=== PATIENT | male | born 1950 | race Caucasian/White ===

== ENCOUNTER 2018-08-19 00:15 | Observation (INO) ==
[2018-08-19] MEDS ORDERED: Ondansetron 4 MG/2 ML VIAL IVP ONE (00:50)
[2018-08-19] MEDS ORDERED: 0.9 % Sodium Chloride 1,000 ML IVC ONE (00:50)
--- NOTE | 2018-08-19 00:52 | Emergency Department Note ---
Disposition Clinical Impression: Ataxia, Hyperglycemia CVA (cerebral vascular accident) Qualifiers: CVA mechanism: unspecified Qualified Code(s): I63.9 - Cerebral infarction, unspecified Disposition: Admitted As Inpatient Condition: Fair Time of Disposition: 02:05 Neuro HPI - General Chief Complaint: ED Neuro Symptoms/Deficit Stated Complaint: vertigo/stroke hx Time Seen by Provider: 08/19/18 00:33 Source: patient Mode of arrival: wheelchair Limitations: no limitations Nursing Notes Reviewed: Yes Vital Signs Reviewed: Yes - History of Present Illness HPI Narrative: 68-year-old male with history of hypertension, CVA presents for evaluation of dizziness. Patient states symptom onset was around 2200 this evening. States he does have prior history of dizziness and TIA in the past with most recent in November of this year. Patient states he was not feeling steady on his feet. Denies any falls. Denies any change in vision blurry vision or diplopia. Patient reports some nausea no vomiting. Patient denies any slurred speech or facial droop. No focal weakness or sensory deficit. Patient is on Lasix as well as full dose aspirin. Patient's dizziness is not necessarily described as room spinning but states that he does not feel steady on his feet. States it is worse when he is up slightly better when he is laying down however it does not completely resolve. - Related Data Home Medications: Home Medications Medication Instructions Recorded Confirmed Aspirin Enteric Coated [Aspirin EC] 325 mg PO DAILY 06/08/16 08/19/18 Clopidogrel [Plavix] 75 mg PO DAILY 06/08/16 08/19/18 Felodipine [Felodipine ER] 5 mg PO DAILY 06/08/16 08/19/18 Fexofenadine HCl 180 mg PO BID PRN 06/08/16 08/19/18 Lisinopril/Hydrochlorothiazide 1 tab PO DAILY 06/08/16 08/19/18 [Zestoretic 20-12.5 mg Tablet] Naproxen Sodium [Aleve] 220 mg PO BID PRN 06/08/16 08/19/18 Nitroglycerin [Nitrostat] 0.4 mg SL AD PRN 06/08/16 08/19/18 Rosuvastatin Calcium [Crestor] 10 mg PO DAILY 06/08/16 08/19/18 Tadalafil [Cialis] 20 mg PO DAILY PRN 06/08/16 08/19/18 metFORMIN [Glucophage] 2,000 mg PO DAILY 06/08/16 08/19/18 Potassium 99 mg PO DAILY 08/19/18 08/19/18 Allergies/Adverse Reactions: Allergies Allergy/AdvReac Type Severity Reaction Status Date / Time No Known Allergies Allergy Verified 08/19/18 03:39 All systems ED: reviewed and negative except as stated. Constitutional: Denies: fever Cardiovascular: Denies: chest pain Respiratory: Denies: cough, dyspnea Gastrointestinal: Reports: nausea. Denies: abdominal pain, vomiting Past Medical History - Past Medical History Source: patient Medical history: Reports: atrial fibrillation, CVA, diabetes, hypertension, other Surgical history: Reports: cholecystectomy, orthopedic, other Psychiatric history: Reports: no psych history - Social History Smoking Status: Never smoker Alcohol use: Reports: none Drug use: Reports: none Physical Exam - General Limitations: no limitations General appearance: alert, in no apparent distress - Head Head exam: atraumatic, normocephalic, normal inspection - Eye Eye exam: Present: normal appearance, PERRL, EOMI - ENT ENT exam: normal exam, mucous membranes moist - Neck Neck exam: Present: normal inspection, trachea midline - Chest Chest inspection: Present: normal inspection, symmetric chest wall rise - Respiratory Respiratory exam: Present: normal lung sounds bilaterally. Absent: respiratory distress - Cardiovascular Cardiovascular exam: Present: regular rate, normal rhythm. Absent: systolic murmur - Abdominal Exam Abdominal exam: Present: soft, Non-Tender - Extremities Exam Extremities exam: Present: normal inspection. Absent: pedal edema - Back Exam Back exam: Present: normal inspection - Neurological Exam Neurological exam: Present: alert, oriented X3, CN II-XII intact - Expanded Neurological Exam Patient oriented to: Present: person Speech: Present: fluid speech Cranial nerves: EOM function (II, III, IV, ): Normal, facial sensation (V): Normal, facial palsy (VII): Normal, spinal accessory function (XI): Normal, tongue deviation (XII): Normal Cerebellar function: finger to nose: Normal Cerebellar function: truncal ataxia Motor strength - LUE: 5/5 Motor strength - RUE: 5/5 Motor strength - LLE: 5/5 Motor strength - RLE: 5/5 Coma Scale Eye Opening: Spontaneous Coma Scale Motor Response: Obeys Commands Coma Scale Verbal Response: Oriented Coma Scale Total: 15 - Skin Skin exam: Present: warm, dry, intact, normal color Course Course Narrative: Patient seen and examined. Patient appears in no acute distress. Patient was not a stroke alert. Patient's complaining of ataxic symptoms started earlier this evening. Patient is on Plavix and aspirin. Has ataxia with standing with a positive Romberg. Patient does have prior TIA versus CVA. Patient will get basic labs, CT scan of the head. Disposition likely admission for further evaluation and maximal medical therapy. - Reevaluation(s) Reevaluation #1: Patient seen and examined. Patient's resting comfortably. No acute distress. Neuro exam is unchanged. Time: 01:55 Vital Signs Temperature 97.6 F 08/19/18 00:20 Pulse Rate 66 08/19/18 00:20 Respiratory Rate 20 08/19/18 00:20 Blood Pressure 145/87 08/19/18 00:20 O2 Sat by Pulse Oximetry 96 08/19/18 00:20 Temperature 97.6 F 08/19/18 00:20 Pulse Rate 70 08/19/18 01:34 Respiratory Rate 17 08/19/18 01:34 Blood Pressure 142/73 08/19/18 01:34 O2 Sat by Pulse Oximetry 97 08/19/18 01:34 Oxygen Delivery Oxygen Delivery Room Air Neuro Symptoms/Deficit - MDM Narrative Medical decision making narrative: Patient presents for concerns of vertigo with a history of CVA. Patient states his prior CVA included vertiginous symptoms and ataxia. Patient also had some left upper extremity weakness and slurred speech. Patient states that his symptoms tonight are not as progressed of they have been in the past. Patient's only complaining of vertiginous symptoms and ataxia. Primarily with standing and walking. States he has feels unsteady on his feet. Patient does have a positive Romberg and feels unsteady upon standing. No focal exam otherwise. Patient had a CT which shows no acute abnormalities. Patient also had basic labs. Patient was given aspirin. Patient's currently on aspirin and Plavix. Patient states that he has had an evaluation for a stroke back in November of this year. Patient states that the it have some abnormalities with the vessels leading into his neck. Patient is not a TPA candidate. Patient was not a stroke alert. Patient will be admitted to the hospital service for CVA/TIA for further evaluation with MRI and maximal medical therapy. - Lab Data Lab results reviewed: Yes I reviewed the patient's lab results. Result diagrams: 08/19/18 01:30 08/19/18 01:30 Lab Results 08/19/18 08/19/18 08/19/18 Range/Units 01:30 01:30 01:30 WBC 6.0 (4.3-11.1) K/mcL RBC 5.33 (4.19-5.50) M/mcL Hgb 15.3 (12.9-16.9) g/dL Hct 46.5 (37.5-50.1) % MCV 87.2 (83.0-100.0) fL MCH 28.7 (28.0-33.3) pg MCHC 32.9 (31.6-35.5) g/dL RDW 13.0 (11.5-14.5) % Plt Count 121 L (140-400) K/mcL MPV 10.6 (9.4-12.4) fL PT 11.8 (9.4-12.1) Seconds INR 1.0 APTT 32.1 (26.0-36.0) Seconds Sodium 141 (136-145) mEq/L Potassium 3.9 (3.5-5.1) mEq/L Chloride 106 (98-107) mEq/L Carbon Dioxide 27 (23-29) mEq/L BUN 21 (8-23) mg/dL Creatinine 1.21 (0.70-1.30) mg/dL Est GFR ( Amer) > 60 (> 60) Est GFR (Non-Af Amer) 59 L (> 60) BUN/Creatinine Ratio 17 (6-26) Glucose 133 H (70-105) mg/dL Calculated Osmolality 297 (280-300) Calcium 9.6 (8.6-10.3) mg/dL Troponin I < 0.03 (< 0.04) ng/mL - Radiology Data Radiology results reviewed: Yes I reviewed the patient's radiology results. Chest X-Ray 08/19/18 00:48 IMPRESSION: No acute process. Stable exam. D/ / Brayan Pringle MD / Brayan Pringle MD Interpreting Provider: Brayan Pringle MD Head CT 08/19/18 00:48 IMPRESSION: No acute intracranial abnormality. D/ / Brayan Pringle MD / Brayan Pringle MD Interpreting Provider: Brayan Pringle MD - EKG Data EKG attestation: Yes I reviewed and interpreted this EKG. EKG shows normal: sinus rhythm Rate: normal Rhythm: NSR Nogal/QRS: left axis deviation, LAHB/LAFB Q waves: v1 T wave inversions noted in: v1 Interpretation: no acute changes, nonspecific ST-T wave changes NIH Stroke Scale - Level of Consciousness LOC: Alert - LOC Questions LOC Questions: Answers both correctly - LOC Commands LOC Commands: Performs both correctly - Best Gaze Best Gaze: Normal - Visual Visual: No visual loss - Facial Palsy Facial Palsy: Normal - Motor Arms Motor Arm-Left: No drift for 10 seconds Motor Arm-Right: No drift for 10 seconds - Motor Legs Motor Leg-Left: No drift for 5 seconds Motor Leg-Right: No drift for 5 seconds - Limb Ataxia Limb Ataxia: Normal, No Ataxia - Sensory Sensory: Normal - Best Language Best Language: No aphasia - Dysarthria Dysarthria: Normal - Extinction and Inattention Extinction and Inattention: Normal - NIHSS Total Score NIHSS Total Score: 0 TPA Checklist - LKW: 3-4.5 hrs Add. Warnings/Precautions Patient/family understanding: The patient/family members have been counseled and understood the risk, benefit, and alternatives of treatment. S.B.A.RJudah - S.B.AElo Situation: Demographics Background: Presenting Complaint Assessment: Vital Signs, Course and respsone to treatment, Patient/Family Ex pectation Recommendation: Barrier(s) to disposition, Recommendation based on pending studies, treatments, or consults S.B.AElo Report Given to: Dr. Murphy Diaz Repor Time: 02:06 Attestation Statement - Attestation Attestation: I examined this patient and my medical decision-making was reviewed with the Resident Physician. I agree with the documented findings, disposition and treatment plan as described except to the extent set forth below. Patient has vertigo. History of stroke. Now with ataxia. Will admit for MRI to rule out posterior infarct and neurology consultation. Patient also underwent noncontrast head CT which showed no evidence of intracranial mass or bleeding.
[2018-08-19 01:41] LABS: Hematocrit 46.5 % (37.5-50.1); Hemoglobin 15.3 g/dL (12.9-16.9); Mean Corpuscular HGB Conc 32.9 g/dL (31.6-35.5); Mean Corpuscular Hemoglobin 28.7 pg (28.0-33.3); Mean Corpuscular Volume 87.2 fL (83.0-100.0); Mean Platelet Volume 10.6 fL (9.4-12.4); Platelet Count 121 K/mcL (140-400); Red Blood Count 5.33 M/mcL (4.19-5.50)
[2018-08-19 01:49] LABS: Prothrombin Time 11.8 Seconds (9.4-12.1)
[2018-08-19 01:51] LABS: Activated Partial Thrombo Time 32.1 Seconds (26.0-36.0)
[2018-08-19] MEDS ORDERED: Aspirin 325 MG TABLET PO ONE (01:53)
[2018-08-19 02:03] LABS: BUN/Creatinine Ratio 17 (6-26); Blood Urea Nitrogen 21 mg/dL (8-23); Calcium 9.6 mg/dL (8.6-10.3); Carbon Dioxide 27 mEq/L (23-29); Chloride 106 mEq/L (98-107); Glucose 133 mg/dL (70-105); Osmolality,Calculated 297 (280-300); Potassium 3.9 mEq/L (3.5-5.1); Sodium 141 mEq/L (136-145); Troponin I < 0.03 ng/mL (< 0.04); eGFR For Non-African Americans 59 (> 60)
[2018-08-19] MEDS ORDERED: Dextrose Gel 15 GM/37.5 ML TUBE PO PRN ×2 (04:09)
[2018-08-19] MEDS ORDERED: *HR* Dextrose 50 % in Water (Syg) 50 ML SYRINGE IVP PRN (04:09)
[2018-08-19] MEDS ORDERED: D5% in Water 1,000 ML IVC PRN (04:09)
--- NOTE | 2018-08-19 08:44 | Internal Med History&Physical ---
Date of Encounter: 08/19/18 Time of Encounter: 08:44 Internal Medicine - H&P: HPI Chief complaint: Dizziness Admitted From: Emergency Dept Plans for Post Hospital Care: Home History of present illness: Mr. Gleason is a 68 year old male past medical history of hypertension CVA diabetes presented to the emergency department after experiencing dizziness at onset occurring at approximately 2200 on 2017-patient does state that he has had prior history of dizziness in the past and was diagnosed with a TIA this occurred November of this year. He states he had a CVA several years ago and since this has occurred he has been experiencing dizziness particularly with movement of head to his right side. He does complain that he has not been feeling steady on his feet however he denies any falls. She denies any vision changes or nausea or vomiting. No focal weakness or sensory deficits. Describes the dizziness as unsteadiness on his feet he does not feel that the room is spinning. Dizziness is worse when he is sitting up and improves when he is lying down. Since being admitted patient states that his symptoms have completely resolved and actually feels that he no longer experiences dizziness when he turns his head to the right which he felt this was a chronic condition. EKG was obtained which was normal sinus rhythm. Lab work was unremarkable-vital signs are stable. CT of head was negative for any acute intracranial abnormalities chest x-ray with no acute process He will be admitted for further workup and evaluation-currently patient denies any chest pain shortness of breath abdominal pain lightheadedness or dizziness. Cranial nerves II through XII are intact no focal deficits. Patient ambulates without any difficulty. Advised patient we will order MRI cardiac echo orthostatic vital signs as well as carotid Dopplers. Patient verbalized understanding of treatment plan Past Med Surg Social Fam HX - Past Medical History Medical history: atrial fibrillation, CVA, diabetes, hypertension, other Psychiatric history: no psych history - Past Surgical History Surgical History: cholecystectomy, orthopedic, other Additional surgical history: right hip and shoulder surgery - Social History Smoking Status: Never smoker Smokeless Tobacco Status: No Alcohol use: none Drug use: none - Family History Mother Hx Family Endocrine Disorder: Yes (DM) Father Hx Family Medical Disorders: Yes (blood clot) Internal Medicine - H&P: Meds Aspirin Enteric Coated [Aspirin EC] 325 mg PO DAILY 06/08/16 [History] Clopidogrel [Plavix] 75 mg PO DAILY 06/08/16 [History] Felodipine [Felodipine ER] 5 mg PO DAILY 06/08/16 [History] Fexofenadine HCl 180 mg PO DAILY 06/08/16 [History] Lisinopril/Hydrochlorothiazide [Zestoretic 20-12.5 mg Tablet] 1 tab PO DAILY 06/08/16 [History] Naproxen Sodium [Aleve] 220 mg PO TID PRN 06/08/16 [History] Nitroglycerin [Nitrostat] 0.4 mg SL AD PRN 06/08/16 [History] Rosuvastatin Calcium [Crestor] 10 mg PO DAILY 06/08/16 [History] metFORMIN [Glucophage] 2,000 mg PO DAILY 06/08/16 [History] Insulin NPH Hum/Reg Insulin Hm [Novolin 70-30 100 Unit/ml Vial] 76 unit SQ QPM 08/19/18 [History] Insulin NPH Hum/Reg Insulin Hm [Novolin 70-30 100 Unit/ml Vial] 78 unit SQ QAM 08/19/18 [History] Potassium 99 mg PO DAILY 08/19/18 [History] Allergy/AdvReac Type Severity Reaction Status Date / Time No Known Allergies Allergy Verified 08/19/18 13:20 All Systems PM: A 10-system review of systems was performed and is negative for pertinent findings except as documented above in the HPI. - Constitutional Constitutional: no chills, no fever(s), no night sweats - EENT Eyes: no change in vision, no discharge, no pain, no photophobia Ears: no ear discharge, no ear pain, no tinnitus Nose, mouth and throat: no dysphagia, no nasal discharge, no neck pain, no sore throat - Cardiovascular Cardiovascular ROS IM: no chest pain, no diaphoresis, no dyspnea, no lightheadedness, no palpitations, no syncope - Respiratory Respiratory: no cough, no dyspnea, no wheezing, no excessive phlegm production - Gastrointestinal Gastrointestinal: no abdominal pain, no diarrhea, no hematemesis, no hematochezia, no melena, no nausea, no vomiting - Musculoskeletal Musculoskeletal ROS IM: no numbness, no tingling - Integumentary Integumentary IM: no rash, no unusual bruising - Neurological Neurological ROS: dizziness, no confusion, no convulsions, no focal weakness, no numbness, no tingling, no tremor(s) - Hematologic/Lymphatic Hematologic/Lymphatic: no easy bruising - Constitutional Vitals: Temp Pulse Resp BP Pulse Ox 98.3 F 68 18 148/79 96 08/19/18 06:35 08/19/18 06:35 08/19/18 06:35 08/19/18 06:35 08/19/18 06:35 General appearance: Present: A&O X 3 Exam: see below - Head Head exam: Present: atraumatic, normocephalic - Eye Eye exam: Present: PERRL, conjuntiva pink, sclera anicteric Pupils: Present: PERRL - Neck Neck exam general surgery: Present: supple, trachea midline. Absent: lymphadenopathy - Respiratory Respiratory exam: Present: CTAB. Absent: accessory muscle use, rales, rhonchi, wheezes - Cardiovascular Cardiovascular exam: Present: RRR, +S1, +S2. Absent: diastolic murmur, gallop, rubs, systolic murmur - GI/Abdominal GI/Abdominal exam: Present: normal bowel sounds, soft, no peritoneal signs. Absent: distended, tenderness - Extremities Exam Extremities exam: Present: warm, radial pulses palpable and symmetrical. Absent: calf tenderness, cyanotic, pedal edema - Neurological Exam Neurological exam: Present: CN II-XII intact, oriented X3, no focal deficits. Absent: pronater drift, facial droop, speech deficit - Skin Skin exam: Present: dry, intact Internal Med - H&P Results - Labs CBC & Chem 7: 08/19/18 01:30 08/19/18 01:30 Labs: Short CBC 08/19/18 Range/Units 01:30 WBC 6.0 (4.3-11.1) K/mcL Hgb 15.3 (12.9-16.9) g/dL Hct 46.5 (37.5-50.1) % Plt Count 121 L (140-400) K/mcL BMP 08/19/18 01:30 Sodium 141 Potassium 3.9 Chloride 106 Carbon Dioxide 27 BUN 21 Creatinine 1.21 Glucose 133 H Calcium 9.6 Cardiac Enzymes 08/19/18 Range/Units 01:30 Troponin I < 0.03 (< 0.04) ng/mL - EKG Data EKG shows normal: sinus rhythm - Impressions ITS Impressions Chest X-Ray 08/19/18 00:48 IMPRESSION: No acute process. Stable exam. D/ / Brayan Pringle MD / Brayan Pringle MD Interpreting Provider: Brayan Pringle MD Head CT 08/19/18 00:48 IMPRESSION: No acute intracranial abnormality. D/ / Brayan Pringle MD / Brayan Pringle MD Interpreting Provider: Brayan Pringle MD - Diagnostic Studies Other Images Additional comments: Chest X-Ray 08/19/18 00:48 IMPRESSION: No acute process. Stable exam. D/ / Brayan Pringle MD / Brayan Pringle MD Interpreting Provider: Brayan Pringle MD Head CT 08/19/18 00:48 IMPRESSION: No acute intracranial abnormality. D/ / Brayan Pringle MD / Brayan Pringle MD Interpreting Provider: Brayan Pringle MD Brain MRI 08/19/18 13:48 IMPRESSION: 1. No acute intracranial abnormality. Specifically, no acute infarction. 2. Mild parenchymal volume loss and sequela of mild chronic microvascular ischemic changes. D/ / Jeanine Thomason MD / Jeanine Thomason MD Interpreting Provider: Jeanine Thomason MD - Assessment and plan (1) CVA (cerebral vascular accident) Current Visit: Yes Status: Suspected Assessment and plan: Patient does have a past history of CVA as well as TIAs most recent occurring in November of this year. He does have dizziness as a residual effect from his last TIA. He states that his dizziness has worsened- CT of head is negative for any acute intracranial abnormalities NIHSS We will obtain MRI Carotid duplex We will check echo Currently on aspirin and Plavix which we will continue Continue with statin check lipid profile Fall precautions Qualifiers: CVA mechanism: unspecified Qualified Code(s): I63.9 - Cerebral infarction, unspecified (2) HTN (hypertension) Current Visit: Yes Status: Acute Assessment and plan: 1 controlled we will continue with home medications Qualifiers: Hypertension type: essential hypertension Qualified Code(s): I10 - Essential (primary) hypertension (3) Diabetes mellitus Current Visit: Yes Status: Acute Assessment and plan: Accu-Cheks before meals at bedtime with sliding scale insulin we will hold metformin for now as well as 70/30 Diabetic diet Qualifiers: Diabetes mellitus type: type 2 Diabetes mellitus skilled nursing insulin use: with skilled nursing use Diabetes mellitus complication status: without complication Qualified Code(s): E11.9 - Type 2 diabetes mellitus without complications; Z79.4 - care home (current) use of insulin (4) DVT prophylaxis Current Visit: Yes Status: Acute - Time Spent With Patient Total time spent is greater than 50% in coordination of care (as documented) at patient's floor/unit and/or counseling patient:
[2018-08-19] MEDS: Insulin LISPRO 300 UNITS/3 ML VIAL SQ SCH ×3 (09:51→17:19)
[2018-08-19] MEDS: Aspirin Enteric Coated 325 MG Tablet PO SCH (09:57)
[2018-08-19] MEDS: Lisinopril-HCTZ 20-12.5mg TABLET PO SCH (09:57)
[2018-08-19] MEDS ORDERED: Nitroglycerin 0.4 MG TAB.SUBL SL PRN (17:35)
[2018-08-19] MEDS ORDERED: Perflutren Lipid Microsphere 1.3 ML in 0.9 % Sodium Chloride 8.7 ML IVP ONE (20:20)
[2018-08-19] MEDS ORDERED: Insulin LISPRO 300 UNITS/3 ML VIAL SQ SCH (21:00)
[2018-08-20] MEDS ORDERED: *HR* Enoxaparin 40 MG/0.4 ML SYRINGE SQ SCH (07:00)
[2018-08-20] MEDS: Aspirin Enteric Coated 325 MG Tablet PO SCH (08:27)
[2018-08-20] MEDS: Insulin LISPRO 300 UNITS/3 ML VIAL SQ SCH ×2 (08:27→12:22)
[2018-08-20] MEDS: Lisinopril-HCTZ 20-12.5mg TABLET PO SCH (08:27)
[2018-08-20] MEDS ORDERED: (Felodipine [Felodipine Er] 5 MG) PO SCH (09:00)
[2018-08-20 11:45] VITALS: BP 133/75
--- NOTE | 2018-08-20 14:35 | Discharge Summary ---
- NOTES TO OUTPATIENT PROVIDER Notes to Outpatient Provider: Patient presented with dizziness-worked up for TIA CT of head and MRI of brain negative, orthostatic vital signs within normal limits cardiac echo with EF of 65-70% carotid Doppler pulmonary with non stenotic plaque bilaterally-continue with aspirin, Plavix as well as statin- blood pressure has been stable here and he has not been taking Felodipine during this admission advised patient to keep a BP log will continue to hold Felopdipine-until he is evaluated by primary care to ensure that this is not lowering his blood pressure Date of Encounter: 08/20/18 Time of Encounter: 14:31 - Discharge Diagnosis (1) HTN (hypertension) Priority: Secondary Status: Acute Qualifiers: Hypertension type: essential hypertension Qualified Code(s): I10 - Essential (primary) hypertension (2) Diabetes mellitus Priority: Secondary Status: Acute Assessment and Plan: Accu-Cheks before meals at bedtime with sliding scale insulin we will hold metformin for now as well as 70/30 Diabetic diet Qualifiers: Diabetes mellitus type: type 2 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 Gleason is a 68 year old male past medical history of hypertension CVA diabetes presented to [facility] department or experiencing dizziness and difficulty ambulating. Patient has had a prior CVA several years ago and since that time he has been experiencing dizziness particularly with movement of his head to his right side however he states that this dizziness has been persistent and constant and has been unsteady on his feet. He did have a TIA earlier this year with similar symptoms and became concerned and presented to the ER for evaluation. Denied any visual changes or nausea vomiting there was no focal weakness or sensory deficits. His symptoms were worse when he was sitting up and improves when he is lying down. CT of head was negative for any acute intracranial modalities chest x-ray with no acute process orthostatic vital signs were within normal limits MRI and brain with no acute intracranial abdomen modalities echo was completed EF of 65-70% normal LV chamber size wall thickness and function normal left ventricular diastolic function RV not well visualized grossly normal size and function no aortic regurgitation no aortic stenosis mildly calcified aortic valve leaflets right atrium not well visualized normal mitral valve structure and function no mitral stenosis no mitral regurg tricuspid valve was normal. Carotid Doppler preliminary showed nonstenotic plaque bilaterally. Blood pressure stable no arrhythmias noted EKG normal sinus rhythm. Patient has been ambulating without difficulty currently denies any dizziness or unsteadiness. Patient feels he is back to his baseline. Advised patient to follow-up with primary care provider and to return to the emergency department if symptoms were to recur. Also advised patient to keep a blood pressure log. Patient verbalized understanding he is hemodynamically stable and ready for discharge. - Time Spent with Patient Total time spent providing and/or coordinating discharge services: - Discharge Medications Home Medications: Aspirin Enteric Coated [Aspirin EC] 325 mg PO DAILY 06/08/16 [History] Clopidogrel [Plavix] 75 mg PO DAILY 06/08/16 [History] Fexofenadine HCl 180 mg PO DAILY 06/08/16 [History] Lisinopril/Hydrochlorothiazide [Zestoretic 20-12.5 mg Tablet] 1 tab PO DAILY 06/08/16 [History] Naproxen Sodium [Aleve] 220 mg PO TID PRN 06/08/16 [History] Nitroglycerin [Nitrostat] 0.4 mg SL AD PRN 06/08/16 [History] Rosuvastatin Calcium [Crestor] 10 mg PO DAILY 06/08/16 [History] metFORMIN [Glucophage] 2,000 mg PO DAILY 06/08/16 [History] Insulin NPH Hum/Reg Insulin Hm [Novolin 70-30 100 Unit/ml Vial] 76 unit SQ QPM 08/19/18 [History] Insulin NPH Hum/Reg Insulin Hm [Novolin 70-30 100 Unit/ml Vial] 78 unit SQ QAM 08/19/18 [History] Potassium 99 mg PO DAILY 08/19/18 [History] Allergies/Adverse Reactions: Allergy/AdvReac Type Severity Reaction Status Date / Time No Known Allergies Allergy Verified 08/19/18 13:20 Date of admission: 08/19/18 02:18 Primary care physician: Noemy Jimenez CNP Discharging clinician: Leonard Anticipated date of discharge: 08/20/18 - Constitutional Vitals: Temp Pulse Resp BP Pulse Ox 98.6 F 67 18 133/75 96 08/20/18 11:44 08/20/18 11:44 08/20/18 11:44 08/20/18 11:44 08/20/18 11:44 General appearance: Present: A&O X 3 Exam: see below - Patient Status Disposition: Home, Self-Care Condition: Fair Functional capacity at discharge: independent ambulation Overall status at discharge: patient is back to baseline - Discharge Instructions Follow Up With: Noemy Jimenez CNP [Primary Care Provider] - 08/25/18 10:00 am - Diet and Activity Activity: increase activity as tolerated Diet: advance to your usual diet
--- NOTE | 2018-08-23 18:55 | Electrocardiograph Report ---
[address] [place], [place] [address] Test Date: 2018-08-19 Pat Name: [facility] Department: [id number] Room: 3B54 Gender: M Scratcher: : 1950 Requested By: Uvaldo Arrington Order Number: [id number] Reading MD: Love Ratliff Measurements Intervals [place] Rate: 69 P: -15 MO: 175 QRS: -63 QRSD: 110 T: 62 QT: 400 QTc: 429 Interpretive Statements Sinus rhythm Left anterior fascicular block Electronically Signed On 08-23-2018 18:53:41 EDT by Love Ratliff
== END 2018-08-20 15:31 | disposition home or self-care (01) ==
LOC: 3BNU 00:15 → EMEROOARM 00:15 → 3BNU 02:54
PROVIDERS: ADMIT Pediatrics; ATTEND Pediatrics